=== PATIENT | female | born 1940 ===

== ENCOUNTER 2022-01-10 10:34 | Emergency (ER) | payer OTHER ==
[~2022-01-10] VITALS: Ht 165.1 cm; Wt 63.0 kg
[~2022-01-10 10:34] MED LIST: LEVOXYL100 MCG
[2022-01-10] MEDS ORDERED: ZETIA10 MG (10:54)
[2022-01-10] MEDS ORDERED: NEXIUM40 M1 (10:55)
== END 2022-01-10 15:19 | disposition home or self-care (01) ==
LOC: ER 10:34
DX: R42 Dizziness and giddiness (principal); E03.9 Hypothyroidism, unspecified